=== PATIENT | female | born 1955 | race Caucasian/White ===

== ENCOUNTER 2019-05-25 14:42 | Inpatient (IN) ==
[2019-05-25] MEDS ORDERED: NS 1,000 ML IV ONE ×2 (15:18→16:55)
[2019-05-25] MEDS ORDERED: MORPHINE IV ONE ×2 (15:18→16:45)
[2019-05-25] MEDS ORDERED: ZOFRAN IV ONE (15:18)
[2019-05-25 15:53] LABS: URINE SOURCE CLEAN CATCH
[2019-05-25 15:59] LABS: BASO# 0.01 X1000 (0.0-0.2); BASO% 0.1 % (0.0-0.8); EOS# 0.15 X1000 (0.0-0.7); EOS% 2.1 % (0.0-10.0); HEMATOCRIT 44.8 % (37.0-47.0); HEMOGLOBIN 14.6 g/dL (12.0-16.0); LYMPH# 1.39 X1000 (1.2-3.4); LYMPH% 19.8 % (20.5-51.1); MCH 28.9 PG (27-31); MCHC 32.6 g/dL (33-37); MCV 88.7 FL (81-99); MONO# 0.79 X1000 (0.11-0.59); MONO% 11.3 % (1.7-9.3); MPV 10.1 FL (7.4-10.4); NEUT# 4.68 X1000 (1.4-6.5); NEUT% 66.7 % (42.2-75.2); PLT 205 X1000 (130-400); RBC 5.05 XMIL (4.2-5.4); RDW 13.8 % (11.5-14.5); WBC 7.02 X1000 (4.8-10.8)
[2019-05-25 16:07] LABS: BILIRUBIN URINE NEGATIVE (NEGATIVE); BLOOD URINE LARGE (NEGATIVE); COLOR ORANGE; GLUCOSE URINE NEGATIVE (NEGATIVE); KETONE URINE NEGATIVE (NEGATIVE); LEUKOCYTES URINE SMALL (NEGATIVE); NITRITE URINE NEGATIVE (NEGATIVE); PROTEIN URINE 30 mg/dL (NEGATIVE); SP GRAVITY URINE 1.011; TURBIDITY URINE HAZY (CLEAR); UROBILINOGEN URINE NORMAL (NORMAL)
[2019-05-25 16:09] LABS: UR EPITHELIAL CELLS <10 /HPF (<10); URINE BACTERIA NEGATIVE /HPF; URINE RBC TNTC /HPF (<10)
[2019-05-25 16:43] LABS: AGAP 11; ALB/GLOB RATIO 1.8; ALBUMIN 4.2 g/dL (3.5-5.0); ALKALINE PHOSPHATASE 98 U/L (32-104); BUN 15 mg/dL (8-22); CALCIUM 9.8 mg/dL (8.8-10.2); CHLORIDE 103 mmol/L (98-107); COSMO 287; CREATININE 0.9 mg/dL (0.5-0.9); ESTIMATED GFR > 60; GLUCOSE 118 mg/dL (70-104); GOT 37 U/L (10-30); GPT 29 U/L (10-36); POTASSIUM 4.3 mmol/L (3.5-5.1); SODIUM 143 mmol/L (136-145); TCO2 29 mmol/L (25-35); TOTAL BILIRUBIN 0.29 mg/dL (0.20-1.00); TOTAL PROTEIN 6.6 g/dL (6.3-8.3)
--- NOTE | 2019-05-25 18:03 | PROVIDER DOCUMENTATION ---
This chart was entered by Martha Ribeiro Scribe, acting as scribe for Chau Murray MD. HPI-General Adult - General Chief Complaint: Post Op Complaint Stated Complaint: POST PROCEDURE COMPLAINT Time Seen by Provider: 05/25/19 14:52 Source: patient Allergies/Adverse Reactions: Patient Allergies Allergy/AdvReac Type Severity Reaction Status Date / Time cephalexin [From Keflex] Allergy Intermediate HIVES Verified 06/19/18 12:40 latex Allergy RASH Verified 05/20/19 13:49 adhesive AdvReac RASH Verified 05/20/19 13:49 Home Medications: Home Medication List Medication Instructions Recorded Confirmed Last Taken Type Calcium 500 mg PO DAILY 06/19/18 05/22/19 Unknown History Fluticasone 50 Mcg Nasal [place] 1 spray PARRIS DAILY 06/19/18 05/22/19 05/20/19 22:00 History [Flonase] Multivitamin [Multivitamins] 1 each PO DAILY 06/19/18 05/22/19 Unknown History Pantoprazole [Protonix] 40 mg PO DAILY 06/19/18 05/22/19 05/22/19 09:00 History Pregabalin [Lyrica] 150 mg PO BID 06/19/18 05/22/19 05/22/19 09:00 History Ropinirole HCl [Requip] 2 mg PO DIRECTED PRN 06/19/18 05/22/19 05/15/19 21:00 History Trazodone [Desyrel] 50 mg PO QHS 06/19/18 05/22/19 05/21/19 22:00 History Amlodipine Besylate [Norvasc] 5 mg PO DAILY 05/20/19 05/22/19 05/22/19 09:00 History Duloxetine HCl [Cymbalta] 60 mg PO BID 05/20/19 05/22/19 05/22/19 09:00 History Levocetirizine Dihydrochloride 5 mg PO DAILY 05/20/19 05/22/19 05/21/19 09:00 History [Xyzal] Mirtazapine [Remeron] 15 mg PO QHS 05/20/19 05/22/19 05/21/19 22:00 History Hydrocodone/Acetaminophen [[place] 1 ea PO Q4H PRN PRN #12 tab 05/22/19 Unknown Rx 7.5-325 Tablet] - History of Present Illness -Gen Adult Nature of Presenting Problems: 64 y/o female presents to ED with RUQ pain and hematuria since shock wave lithrotripsy 3 days ago. Pt reports she has been taking the [place] prescribed to her, but it has only minimally improved her symptoms. Pt is alert and oriented. Location of Pain/Injury: reports: abdomen (RUQ) Pain Radiation: reports: no radiation Quality of Pain: reports: sharp Severity: reports: moderate Onset/Duration: reports: 3 days ago Timing: reports: still present Context/Activities at Onset: reports: none Modifying Factors: worse with: palpation Associated Symptoms: reports: other (RUQ pain; hematuria) Similar Symptoms Previously?: No Recently seen or treated by another doctor?: No Review of Systems - Adult - REVIEW OF SYSTEMS - ADULT Constitutional: denies: chills, fever Eyes: reports: no symptoms reported Ears, Nose, Mouth & Throat: reports: no symptoms reported Cardiovascular: denies: chest pain, palpitations Respiratory: denies: cough, shortness of breath Gastrointestinal: reports: abdominal pain. denies: diarrhea, nausea, vomiting Genitourinary: reports: hematuria. denies: incontinence Musculoskeletal: denies: back pain, joint pain Integumentary: reports: no symptoms reported Neurological: denies: dizziness/vertigo, seizure Psychiatric: reports: no symptoms reported Endocrine: reports: no symptoms reported Hematologic/Lymphatic: reports: no symptoms reported Allergic/Immunologic: reports: no symptoms reported All Other Systems: Reviewed and Negative Past History - Adult - PAST MEDICAL HISTORY-ADULT Review of Records: reports: Old Records Reviewed, Nursing Assessment Review, Medications Reviewed Major Childhood Illnesses: reports: denies history Cardiovascular: reports: HTN Respiratory: reports: sleep apnea Gastrointestinal: reports: GERD Genitourinary: reports: kidney stones Musculoskeletal: reports: fibromyalgia Psychiatric: reports: other (insomnia) - PRIOR SURGERIES/PROCEDURES Surgical/Procedure History: reports: recent surgery (lithrotripsy 05/22/19), cholecystectomy, breast (biopsy x2), gastric bypass, other (lithrotripsy 05/22/19) - IMMUNIZATION STATUS Childhood Immunizations: See Nurse Assessment Flu Vaccine: See Nurse Assessment - FAMILY HISTORY Family History: reviewed, not pertinent - SOCIAL HISTORY Smoking: non-smoker Substance Use: none/never Alcohol Use Frequency: never Living Situation: family Physical Exam-General - PHYSICAL EXAM-ADULT Initial Vital Signs Reviewed: Yes - CONSTITUTIONAL General Appearance: appears well, alert, no apparent distress - EYES Eyes: PERRL/EOMI, pink conjunctivae - HEAD, EARS, NOSE, MOUTH & THROAT HENMT: normocephalic/atraumatic, moist mucous membranes, normal ENT inspection - NECK Neck: non-tender, full range of motion - RESPIRATORY Respiratory: chest non-tender, lungs clear, normal breath sounds - CARDIOVASCULAR Cardiovascular: normal peripheral pulses, regular rate, rhythm - GASTROINTESTINAL (ABDOMEN) Abdominal Exam: normal bowel sounds, soft, tenderness (RUQ) - MUSCULOSKELETAL Back Exam: normal inspection, no vertebral tenderness, CVA tenderness (R) Extremity: normal range of motion, non-tender, normal gait - SKIN Integumentary: normal color, warm/dry - NEUROLOGIC Neurologic: grossly normal - PSYCHIATRIC Psych/Mental Status: normal mood/affect, normal thought content, normal thought process, oriented x 3 Progress - PLAN OF CARE/RESULTS Progress/Plan/Lab Results: Vital Signs - 8 hr 05/25/19 14:45 Temperature 98.2 F Pulse Rate 83 Respiratory Rate 18 Blood Pressure 161/82 O2 Sat by Pulse Oximetry 98 Orders Category Date Time Status Saline Loc NOW Care 05/25/19 15:18 Active BLOOD CULTURE [BLDCUL] Stat Lab 05/25/19 15:32 Ordered CBC WITH ELECTRONIC DIFF [HEME] Stat Lab 05/25/19 15:32 Ordered COMPREHENSIVE METABOLIC PANEL [CHEM] Stat Lab 05/25/19 15:32 Ordered LACTATE, PLASMA [CHEM] Stat Lab 05/25/19 15:32 Ordered URINALYSIS W/POSS RFLX CULT [URINALYSIS] Stat Lab 05/25/19 15:32 Ordered 0.9% Sodium Chloride Inj [Ns] 1,000 ml Med 05/25/19 15:18 Active IV 999 mls/hr Morphine Med 05/25/19 15:18 Discontinued 4 mg IV NOW ONE Ondansetron [Zofran] Med 05/25/19 15:18 Discontinued 4 mg IV NOW ONE Laboratory Tests 05/25/19 05/25/19 05/25/19 15:28 15:28 15:28 WBC 7.02 RBC 5.05 Hgb 14.6 Hct 44.8 MCV 88.7 MCH 28.9 MCHC 32.6 L RDW Std Deviation 13.8 Plt Count 205 MPV 10.1 Immature Gran % (Auto) 0.0 Neut % (Auto) 66.7 Lymph % (Auto) 19.8 L [place] % (Auto) 11.3 H Eos % (Auto) 2.1 Baso % (Auto) 0.1 Immature Gran # (Auto) 0.00 Neut # (Auto) 4.68 Lymph # (Auto) 1.39 B[place] # (Auto) 0.79 H Eos # (Auto) 0.15 Baso # (Auto) 0.01 Sodium 143 Potassium 4.3 Chloride 103 Carbon Dioxide 29 Anion Gap 11 BUN 15 Creatinine 0.9 Estimated GFR/1.73 m2 > 60 BUN/Creatinine Ratio 17 Glucose 118 H Calculated Osmolality 287 Calcium 9.8 Total Bilirubin 0.29 AST 37 H ALT 29 Alkaline Phosphatase 98 Total Protein 6.6 Albumin 4.2 Globulin 2.4 Albumin/Globulin Ratio 1.8 Plasma Lactate 1.2 Urine Source Urine Color Urine Turbidity Urine pH Ur Specific [place] Urine Protein Ur Glucose (Stick) Ur Ketones (Stick) Urine Blood Urine Nitrite Urine Bilirubin Urobilinogen Dipstick Urine Leukocytes Urine WBC (Auto) Urine RBC (Auto) U Epithel Cells (Auto) Urine Bacteria (Auto) 05/25/19 15:28 WBC RBC Hgb Hct MCV MCH MCHC RDW Std Deviation Plt Count MPV Immature Gran % (Auto) Neut % (Auto) Lymph % (Auto) Bledso[place] % (Auto) Eos % (Auto) Baso % (Auto) Immature Gran # (Auto) Neut # (Auto) Lymph # (Auto) B[place]so[place] # (Auto) Eos # (Auto) Baso # (Auto) Sodium Potassium Chloride Carbon Dioxide Anion Gap BUN Creatinine Estimated GFR/1.73 m2 BUN/Creatinine Ratio Glucose Calculated Osmolality Calcium Total Bilirubin AST ALT Alkaline Phosphatase Total Protein Albumin Globulin Albumin/Globulin Ratio Plasma Lactate Urine Source CLEAN CATCH Urine Color ORANGE Urine Turbidity HAZY Urine pH 8.0 Ur Specific [place] 1.011 Urine Protein 30 A Ur Glucose (Stick) NEGATIVE Ur Ketones (Stick) NEGATIVE Urine Blood LARGE A Urine Nitrite NEGATIVE Urine Bilirubin NEGATIVE Urobilinogen Dipstick NORMAL Urine Leukocytes SMALL A Urine WBC (Auto) 10-20 A Urine RBC (Auto) TNTC A U Epithel Cells (Auto) <10 Urine Bacteria (Auto) NEGATIVE A/P: 5mm obstructing stone in R UVJ, with severe hydronephrosis. vitals stable. pain controlled. spoke with Urology Dr sher and rec admission , will see in am. Result Diagrams: 05/25/19 15:28 05/25/19 15:28 - CT/MRI 1 CT Study: Renal Stone Impression: See EMR Report - CONSULTS/PCP/HOSPITALIST Notification #1 *Consult/PCP/Hospitalist*: Dr. Vazquez Time Discussed: 17:28 Consult Disposition: other (Order CT renal stone.) #2 Consult: Dr Oro Time Discussed: 19:53 Consult Disposition: Admit Departure - Departure Date of Disposition Decision: 05/25/19 Time of Disposition Decision: 19:53 DIAGNOSIS: Nephrolithiasis Disposition: ADMITTED INPATIENT 09 Certified Medical Emergency: Emergent Condition: Stable Additional Freetext Instructions: We have examined and treated you today on an emergency basis only. This was not a substitute for, or an effort to provide, complete medical care. In most cases, you must let your doctor check you again. Tell your doctor about any new or lasting problems. We cannot recognize and treat all injuries or illnesses in one Emergency Department visit. If you had special tests, such as X-rays or CT scans, will be reviewed by radiologist and will call you if there are any new suggestions Follow up with primary care provider in 1 to 2 days if no improvement. If you do not have a primary care provider, you need to choose one as soon as possible. Take medicines as prescribed. Monitor for any side effects or adverse events from medications. If any side effect, adverse event or rash develops, or if you suspect any other adverse reaction to the medication, then discontinue the medication immediately and contact clinic /PCP or go to the nearest ER. Narcotic meds / sedative meds instruction - patent advised not to drive, operate any machinery or go into water after taking meds as it may impair mental ability to react to the situation in an appropriate manner . Continue other current medicines. Follow up with PCP within 24-48 hours, or sooner if symptoms worsen or fail to improve. Patient / guardian verbalizes understanding of treatment plan, medication, and side effects and agrees with treatment plan. Patient leaves ER in stable condition and ambulatory state. Return to ER as needed. Discharge instructions reviewed verbally and given to patient in written form. Follow up with primary care provider. Referrals and Follow-Ups: Chely Wise MD [Primary Care Provider] - - Critical Care Note This patient required my direct & personal management of CC.: No Attestation - Physician/ GAVINO Attestation Patient care was provided by Advanced Practice Provider:: No The physician spent face to face time with patient:: Yes Advanced Practice Provider documentation review:: Supervising physician onsite and consulted in the evaluation and care of this patient. The physician did have a face to face encounter with the patient. This chart was documented by the indicated scribe, (Martha Ribeiro Scribe) and accurately reflects the services I performed and decisions made by me, Chau Murray MD, as attested by the provider's signature.
--- NOTE | 2019-05-25 18:31 | Diag Imaging Result Doc PS360 ---
EXAM: CT RENAL STONE SEARCH INDICATION: right flank pain TECHNIQUE: This exam was performed using automated exposure control, adjustment of mA or kV according to patient size, and/or use of iterative reconstruction technique. COMPARISON: 05/08/2019 FINDINGS: There has been a prior cholecystectomy. The liver, spleen, pancreas, and adrenal glands are grossly unremarkable as imaged with unenhanced CT. There are multiple obstructing stones seen end on end in the distal ureter on the right. One of the largest is at the right UVJ measuring up to 5.5 mm. This is causing fairly severe hydronephrosis on the right. There are several other bulky nonobstructing intrarenal stones on the right as well. There is right perinephric stranding indicating obstructive uropathy. The left kidney is unremarkable. The urinary bladder is unremarkable. There is mild uncomplicated diverticulosis coli. There is a surgical staple line associated with the stomach and a loop of bowel suggesting prior gastric bypass. The GI tract is essentially unremarkable, otherwise. The reproductive tract is unremarkable as imaged. There is lumbar spondylosis. There is no evidence of acute osseous abnormality. IMPRESSION: 1.Right nephrolithiasis with multiple obstructing stones in the distal right ureter end on end and associated fairly severe right hydronephrosis. 2.Other incidental/nonacute findings detailed above. Electronically signed by Jareth Brewer 05/25/2019 6:28 PM
[2019-05-25] MEDS ORDERED: NS 1,000 ML IV SCH (21:15)
[2019-05-25] MEDS ORDERED: OFIRMEV 1000 MG/ISOTONIC SOLN 1,000 MG/100 ML BOTTLE IV ONE (21:15)
[2019-05-25] MEDS: DEMEROL IV PRN (21:31)
[2019-05-25] MEDS: ZOFRAN IV PRN (21:32)
[2019-05-25] MEDS ORDERED: BLISTEX MEDICATED BERRY LIP BALM TOP PRN (21:48)
[2019-05-25] MEDS ORDERED: TYLENOL PO PRN (22:11)
[2019-05-25] MEDS ORDERED: NEXIUM IV SCH (22:11)
[2019-05-25] MEDS ORDERED: SODIUM CHLORIDE 0.9% INJ SCH (22:11)
[2019-05-26] MEDS: DEMEROL IV PRN ×2 (00:32→04:47)
[2019-05-26] MEDS: ZOFRAN IV PRN ×2 (00:32→04:47)
[2019-05-26 06:10] LABS: BASO# 0.02 X1000 (0.0-0.2); BASO% 0.6 % (0.0-0.8); EOS# 0.14 X1000 (0.0-0.7); EOS% 4.5 % (0.0-10.0); HEMATOCRIT 39.9 % (37.0-47.0); HEMOGLOBIN 12.8 g/dL (12.0-16.0); LYMPH# 1.08 X1000 (1.2-3.4); LYMPH% 34.4 % (20.5-51.1); MCH 28.8 PG (27-31); MCHC 32.1 g/dL (33-37); MCV 89.7 FL (81-99); MONO# 0.38 X1000 (0.11-0.59); MONO% 12.1 % (1.7-9.3); MPV 9.6 FL (7.4-10.4); NEUT# 1.52 X1000 (1.4-6.5); NEUT% 48.4 % (42.2-75.2); PLT 168 X1000 (130-400); RBC 4.45 XMIL (4.2-5.4); RDW 14.1 % (11.5-14.5); WBC 3.14 X1000 (4.8-10.8)
[2019-05-26 06:41] LABS: AGAP 12; BUN 9 mg/dL (8-22); CHLORIDE 106 mmol/L (98-107); COSMO 280; CREATININE 0.8 mg/dL (0.5-0.9); ESTIMATED GFR > 60; GLUCOSE 91 mg/dL (70-104); POTASSIUM 4.2 mmol/L (3.5-5.1); SODIUM 141 mmol/L (136-145); TCO2 23 mmol/L (25-35)
[2019-05-26] MEDS ORDERED: PROTONIX PO SCH (07:00)
--- NOTE | 2019-05-26 07:03 | HISTORY AND PHYSICAL ---
PRIMARY CARE PROVIDER: Dr. Chely Wise UROLOGIST: Dr. Giraldo. CHIEF COMPLAINT: Hematuria and right back, flank and abdominal pain. HISTORY OF PRESENT ILLNESS: Ms. Cunningham is a 64-year-old female with a history of a recent lithotripsy. The patient on 05/22 had a large right mid renal stone for which she had a right extracorporeal shockwave lithotripsy performed. The patient states that this was performed outpatient pretty much since she went home that she said that she has continued to have pain though it has gotten to where she could not handle it anymore, and presented to the ER for further evaluation. She states since that time that she has had gross hematuria as well. She reports that the pain is a constant crampy pain though becomes stabbing at times. She reports pain in her right mid back, right flank, and all across her abdomen. She also reported some epigastric pain as well though she does report hematuria. She denies any pain or burning with urination. She states that she has been urinating well, and has had her normal urine output. She is reporting headache at this time. She does have a history of migraine headaches though states this feels like just a regular headache, and does not feel like her migraine headaches. She also reported some chills over the past 2 days though no chills today. She denies any fever or body aches. She has reported some nausea though denies any vomiting. She also denies any chest pain, shortness of breath or cough. She denies any diarrhea, hematochezia or melena. She denies any pain, numbness, tingling or swelling in extremities. Upon evaluation in the ER, she was noted to have urinalysis that showed large blood, and small leukocytes with 10 to 20 white blood cells. Though given her reported symptoms on recent surgery, they did perform a CT renal stone search which showed a right nephrolithiasis with multiple obstructing stones in the distal right ureter on end and associated fairly severe right hydronephrosis. Urology was notified which was Dr. Vazquez, who was boring machine operator horizontal for Dr. Giraldo. He recommended the patient to be admitted for further treatment and evaluation. The patient was placed for inpatient admission. REVIEW OF SYSTEMS: A 14 point review of systems was conducted with the patient, and all were negative except for pertinent positives mentioned above HPI. PAST MEDICAL HISTORY: 1. History of renal lithiasis with total now of 2 lithotripsies with one most recently being performed on 05/22/[address] Giraldo. 2. History of stress incontinence. 3. Cystocele. 4. Rectocele. 5. Fibromyalgia. 6. Migraines. 7. Urinary tract infection. 8. Diverticulosis coli. 9. Gastroesophageal reflux disease. 10. Anemia. 11. Arthritis. 12. Hypertension. PAST SURGICAL HISTORY: 1. Gastric bypass surgery. 2. Lithotripsy x2 with the first one being performed in 2007, and the most recent being performed 05/22/[address] Giraldo. 3. Breast biopsy. 4. Cholecystectomy. 5. Tonsillectomy and adenoidectomy. SOCIAL HISTORY: The patient denies any past or present tobacco, alcohol or illicit drug use. FAMILY HISTORY: Positive for her mother having a history of stroke and hyperlipidemia. Her father had a history of thyroid cancer, diabetes mellitus, and heart disease. ALLERGIES: Patient has allergies to Keflex, adhesive tape, and reports anaphylactic allergy to latex. HOME MEDICATIONS: 1. Norvasc 5 mg p.o. daily. 2. Vitamin B12 2500 mg p.o. daily. 3. Cymbalta 30 mg p.o. b.i.d. 4. Flonase 1 spray nasally at bedtime. 5. Xyzal 5 mg p.o. daily. 6. Remeron 15 mg p.o. at bedtime. 7. Singulair 2 mg p.o. at bedtime. 8. Protonix 40 mg p.o. daily. 9. Lyrica 150 mg p.o. b.i.d. 10. Requip 2 mg p.o. at bedtime p.r.n. 11. Trazodone 50/150 mg p.o. at bedtime. This dose needs to be verified. DIAGNOSTIC DATA: 1. White blood cell count is 7020. Hemoglobin 14.6, hematocrit 44.8, and platelet count 205. Sodium 143, potassium 4.3, chloride 103, serum bicarb 29, BUN 15, and creatinine 0.9. GFR greater than 60. Glucose 118. Calcium 9.8. Liver function tests are within normal except for the AST is slightly elevated at 37. The clean catch urine was positive for protein, large blood and small leukocytes contained twenty white blood cells. That was negative now glucose, ketones, nitrates or bacteria. 2. CT renal stone search showed a right nephrolithiasis with multiple obstructing stones in the distal right ureter end on end, and associated fairly severe right hydronephrosis. Please see full CT report for other nonacute findings. PHYSICAL EXAMINATION: VITAL SIGNS: Temperature 98.4 degrees, heart rate 86, respirations 12, and blood pressure 167/80. Oxygen saturation is 99% on room air. GENERAL: Ms. Cunningham is a very pleasant 64-year-old female. She was resting on the ER stretcher. She was in no acute distress. She was awake, alert, and able to answer questions appropriately. HEENT: Head is atraumatic, normocephalic. Pupils are equal, round, reactive to light, and were 3 mm bilaterally and brisk. Oral mucosa is moist. Oropharynx is clear. NECK: Supple. Trachea midline. CARDIOVASCULAR: Patient has S1-S2 present. No murmurs, gallops, or rubs. No murmurs, gallops, or rubs appreciated. Regular rate and rhythm. PULMONARY: Patient has symmetrical chest expansion bilaterally. Lung sounds are clear to auscultation in bilateral full mueller. ABDOMEN: Soft. Nondistended. The patient does report tenderness in the right CVA, right flank and does report some generalized soreness across her abdomen, and in the epigastric area. Bowel sounds are present in all 4 quadrants, and were normoactive. EXTREMITIES: No cyanosis or edema noted. Pulse, motor, and sensory were intact in all extremities. Radial pulses and pedal pulses were 3+ bilaterally. INTEGUMENTARY: The patient's skin is pink, warm, and dry. NEUROLOGICAL: Patient is alert and oriented x4. She is able to move all extremities. There are no focal neurological deficits noted. ASSESSMENT AND PLAN: 1. Right nephrolithiasis with multiple obstructing stones, and associated severe right hydronephrosis. 2. Status post right extracorporeal shockwave lithotripsy on 05/22/[address] Giraldo. 3. Intractable pain. For numbers 1, 2 and 3 at this time, we will provide IV fluid hydration. We will also provide p.r.n. IV pain medicine and nausea medicine. We will place the patient NPO after midnight. We have placed a consult with Dr. Giraldo who did perform her surgery for in the morning. Dr. Vazquez, who is covering for Dr. Giraldo at this time has been notified, and is aware of the patient as well. We will await their evaluation, and further recommendations for management. 4. Hypertension. We will continue the patient's Norvasc. 5. Gastroesophageal reflux disease. We will continue the patient's Protonix. 6. Fibromyalgia. We will continue the patient's Lyrica. 7. Deep vein thrombosis prophylaxis was provided with SCD's. We will hold any anticoagulants at this time given that the patient may be a possible surgical patient, and she has been having gross hematuria as well. 8. She has been placed on the surgical floor with telemetry. She will have vital signs every 8 hours with a strict intake and output. She will be NPO. We will repeat CBC and BMP in the morning. Urinalysis did show positive for blood small leukocytes, and white blood cells, though the patient does not have any reported dysuria. She is not reporting any fever, chills or body aches at present. She is afebrile, and has no leukocytosis noted. We have placed an order for urine culture, and we will await Dr. Giraldo for further orders and recommendations, pending hospital course, diagnostic studies, and physician evaluation. Dictated by MAO Solomon for Suresh Oro MD cc: Suresh Oro MD
[2019-05-26] MEDS ORDERED: KEFZOL 1 GM/D5W 0 GM/0 ML IVPB ONE (08:09)
[2019-05-26] MEDS ORDERED: LEVAQUIN 500 MG/D5W 500 MG/100 ML IVPB ONE (08:12)
[2019-05-26] MEDS ORDERED: DIPRIVAN 1% ONE (08:25)
[2019-05-26] MEDS ORDERED: XYLOCAINE-MPF 2% ONE (08:26)
[2019-05-26] MEDS ORDERED: ZOFRAN ONE (08:30)
[2019-05-26] MEDS ORDERED: DECADRON ONE (08:30)
[2019-05-26] MEDS ORDERED: ZYRTEC PO SCH (09:00)
[2019-05-26] MEDS ORDERED: VITAMIN B-12 PO SCH (09:00)
[2019-05-26] MEDS ORDERED: NORVASC PO SCH (09:00)
[2019-05-26] MEDS: DILAUDID ONE ×2 (09:27→09:30)
[2019-05-26] MEDS ORDERED: DITROPAN ONE (09:38)
[2019-05-26] MEDS ORDERED: DITROPAN PO PRN (10:12)
[2019-05-26 10:13] VITALS: BP 156/79
[2019-05-26] MEDS ORDERED: ULTRAM PO PRN (10:13)
--- NOTE | 2019-05-26 11:12 | Diag Imaging Result Doc PS360 ---
FLUROSCOPY CYSTO - 05/26/2019 INDICATION: STONE REMOVAL, STENT PLACEMENT TECHNIQUE: Fluoroscopy and multiple views of the abdomen. The exam was performed by the patient's urologist. Nine images were obtained. COMPARISON: CT from 05/08/2019 FINDINGS: There was wire instrumentation of the right ureter and right renal collecting system. A nephroureteral stent was placed in good position. IMPRESSION: No complication. Electronically signed by Moe Bates 05/26/2019 11:10 AM
[2019-05-26] MEDS: LYRICA PO SCH ×2 (11:51→14:01)
--- NOTE | 2019-05-26 14:31 | OPERATIVE NOTE ---
PROCEDURE DATE: 05/26/2019 SURGEON: Saran Giraldo MD. PREOPERATIVE DIAGNOSIS: Severe right flank pain with right ureteral Steinstrasse. POSTOPERATIVE DIAGNOSIS: Severe right flank pain with right ureteral Steinstrasse. PROCEDURE PERFORMED: Cystoscopic exam, right ureteroscopy, laser lithotripsy of stone fragments, basket extraction of the fragments and placement of right double-J stent. ANESTHESIA: General via laryngeal mask. FINDINGS: Cystoscopic exam: Urethra-greater than 21 B[place]udian without stricture. Bladder-normal ureteral orifices bilaterally. No papillary lesions. No trabeculations. Mild prolapse of the bladder. Right ureteroscopy reveals a large number of stone fragments from the ureterovesical junction up to the midureter. After all of these were removed the ureteroscope was advanced up to the right renal pelvis. No large fragments or other stones were visualized. exam: Normal external female. Atrophic mucosa. No adnexal masses or tenderness. Palpably normal cervix and uterus. INDICATION FOR PROCEDURE: This 64-year-old female had a large right renal stone. She is about 4 days status post right extracorporeal shockwave lithotripsy. Yesterday she developed severe right flank pain. A CT stone search obtained in the emergency room revealed right hydronephrosis down to the line of stone starting in the midureter down to the bladder. DESCRIPTION OF PROCEDURE: After informed consent was obtained the patient, her receiving IV antibiotics, she was taken the main OR cystoscopy room, placed in the supine position. General anesthesia via laryngeal mask was achieved. She was then placed in a low lithotomy position and prepped and draped in the usual sterile fashion for cystoscopic exam. A 21-Bermudian cystoscope was passed through the patient's urethra and bladder. Findings noted above. A 0.035 ZIPwire was passed through the cystoscope, engaged the right ureteral orifice and advanced up into the kidney. The cystoscope was removed leaving the ZIPwire in place to act as a safety wire. A 7-Bermudian Storz semirigid ureteroscope was advanced the patient's urethra. A 0.035 Sensor wire was passed through the ureteroscope and into the ureter. The ureteroscope was advanced over the Sensor wire and into the right distal ureter. The Sensor wire was removed. A 365 micron laser fiber was placed. The laser was set at 8 hertz and 8 charles and the lead stones were well fragmented. A 4 wire Nitinol basket was placed and several passes were made to remove the stone fragments. Several of these were sent to Pathology for analysis. The ureteroscope was advanced to the midureter and another large fragment was visualized and this was likewise broken up with the laser fiber. The laser was set at 8 hertz and 8 charles, and the total joules were 217. Four wire Nitinol basket was used with multiple passes to remove stone fragments. At completion, the ureter was clear of any large fragments from the UVJ all the way up into the renal pelvis. The ureteroscope was removed. The cystoscope was returned to the bladder over the ZIPwire. A 6-Bermudian, 22 cm double-J stent was passed over the ZIPwire and up into the kidney. The renal end was verified by fluoroscopic exam, bladder end directly visualized. The bladder was irrigated and multiple fragments were removed. The stent removal string was securely taped to the lower abdomen. exam was performed. She tolerated the procedure well. Estimated blood loss was less than 3 mL. She was taken to recovery room in good condition. cc: Saran Giraldo MD
[2019-05-26] MEDS ORDERED: FLONASE NAS SCH (21:00)
[2019-05-26] MEDS ORDERED: REMERON PO SCH (21:00)
[2019-05-26] MEDS ORDERED: SINGULAIR PO SCH (21:00)
--- NOTE | 2019-05-27 12:27 | DISCHARGE SUMMARY ---
ADMISSION DATE: 05/25/2019 DISCHARGE DATE: 05/26/2019 ADMITTING DIAGNOSES: 1. Right nephrolithiasis with multiple obstructing stones and intractable pain. 2. Hypertension. 3. Gastroesophageal reflux disease. 4. Fibromyalgia. 5. Status post right extracorporeal shock wave lithotripsy on 05/22/2019. DISCHARGE DIAGNOSES: 1. Status post cystoscopy with right ureteroscopy and laser lithotripsy of stone fragments. 2. Hypertension. 3. Gastroesophageal reflux disease. 4. Fibromyalgia. 5. Anemia. 6. Arthritis. 7. Hypertension. 8. Migraines. PROCEDURES AND FINDINGS: On 05/26/2019, the patient had a cystoscopic exam with right ureteroscopy and laser lithotripsy of stone fragments with basket extraction of the fragments and placement of right double-J stent by Dr. Giraldo. Renal CT was done on 05/25/2019, which showed right nephrolithiasis with multiple obstructing stones in the right distal ureter, and an associated fairly severe right hydronephrosis. CONSULTS: Dr. Giraldo. HOSPITAL COURSE: Ms. Cunningham is a 64-year-old female who presented to the ER on 05/25/2019 with recent lithotripsy on 05/22/2019, where she had a large right mid renal stone that she had shockwave lithotripsy performed. The patient has continued to have pain since her lithotripsy. She started having gross hematuria with her urine. She reports the pain as a constant cramping pain, sometimes stabbing at times. Urinalysis done in the ER did show a large amount of blood with small leukocytes and white blood cells. The CT showed renal stones and right nephrolithiasis with multiple obstructing stones in the distal right ureter associated with fairly severe right hydronephrosis. Dr. Giraldo was consulted. The patient was admitted to the medical floor. The patient is now status post cystoscopy. She is to follow up with Dr. Giraldo on . The patient has been discharged home. LABORATORY DATA: White blood cell count 3.14, hemoglobin 12.8, hematocrit 39.9, platelet count 168,000. Sodium 141, potassium 4.2, carbon dioxide 23, BUN is 0.9, creatinine is 0.8, GFR is greater than 60, calcium is 8. DISCHARGE MEDICATIONS: Trazodone 50 to 150 mg p.o. at bedtime, Flonase 1 spray at bedtime, Remeron 50 mg p.o. at bedtime, Singulair 10 mg p.o. at bedtime, Cymbalta 30 mg p.o. b.i.d., Lyrica 150 mg p.o. b.i.d., Norvasc 5 mg p.o. daily, Protonix 40 mg p.o. daily, Requip 2 mg p.o. at bedtime p.r.n. vitamin B12 at 2500 mcg p.o. daily, Xyzal 5 mg p.o. daily, Ditropan 5 to 10 mg p.o. every 8 hours p.r.n., Ultram 50 mg p.o. every 6 hours p.r.n. DISCHARGE DIET: Resume diet as tolerated. DISCHARGE ACTIVITY: Resume activity as tolerated. DISPOSITION AND DISCHARGE INSTRUCTIONS: The patient is to discharge home with self-care today. She is to follow up with Dr. Giraldo on of this week at 9:40 a.m., that is on 05/29/2019. She is to follow up with Dr. Chely Wise as needed. Dictated by MAO Camacho for Tej Box MD cc: MD Chely Baum MD William E. Hughes, MD
== END 2019-05-26 14:45 | disposition home or self-care (01) | DRG 661 ==
LOC: ED 14:42 → 4N 21:36 → SUATTDRO 21:36
PROVIDERS: ATTEND Internal Medicine
CPT/HCPCS: 74176; 76000; 80048; 80053; 81001; 82360; 83605; 85025; 87040; 87088; 88300; A9270; J0131; J0690; J1100; J1170; J1956; J2150; J2175; J2270; J2405; J7030; J7120